=== PATIENT | female | born 2005 | race Caucasian/White ===

== ENCOUNTER 2025-03-23 10:59 | Inpatient (IN) | payer BC ==
[~2025-03-23 10:59] MED LIST: Iopamidol-370 76% 500 ML MDV (1 ML CHARGE) ONE
[2025-03-23 11:42] LABS: #Basophils 0.11 10x3/uL (0.0-0.2); #Eosinophils 0.12 10x3/uL (0.0-0.7); #Monocytes 1.17 10x3/uL (0.11-0.59); #Neutrophils 11.63 10x3/uL (1.40-6.50); %Basophils 0.7 % (0.0-1.0); %Eosinophils 0.8 % (0.0-10.0); %Lymphocytes 17.8 % (28.0-48.0); %Monocytes 7.3 % (0.0-4.0); %Neutrophils 73.0 % (31.0-61.0); Hematocrit 44.1 % (36.0-47.0); Hemoglobin 15.9 g/dL (12.0-16.0); Mean Corpuscular Hemoglobin 30.4 pg (25.0-35.0); Mean Corpuscular Volume 84.3 fL (78.0-98.0); Platelet Count 301 10x3/uL (130-400); Red Blood Cell (RBC) Count 5.23 mill/uL (4.00-5.20); White Blood Cell (WBC) Count 15.94 10x3/uL (4.8-10.8)
[2025-03-23 11:54] LABS: Pregnancy Test - Urine (BHCG) Negative (Negative); Pregu Control Background? CLEAR/WHITE (CLR/WHITE); Pregu Control Bar Appear? YES (CONTROL BAR)
[2025-03-23 11:55] LABS: Bacteria/HPF None Seen HPF (None Seen); CAUTI Indications for Culture Dysuria,urgency,freq; Glucose, Urine (Dipstick) Normal (Negative); Leukocyte Negative Leu/uL (Negative); Protein, Urine (Dipstick) 50 mg/dL (Neg-Trace); RBC/HPF 0-3 HPF (0-3); Specific Gravity, Urine 1.025 (1.002-1.036)
[2025-03-23 11:56] LABS: Urine Culture Reflex No No
[2025-03-23 12:02] LABS: BHCG - Serum Negative (NEGATIVE); Pregs Control Background? CLEAR/WHITE (CLR/WHITE); Pregs Control Bar Appear? YES (CONTROL BAR)
[2025-03-23 12:09] LABS: ALT (SGPT) 16 U/L (Less than 34); AST (SGOT) 27 U/L (11-34); Albumin 5.4 g/dL (3.1-4.5); Alkaline Phosphatase 46 U/L (40-100); Anion Gap 20 mmol/L (10-20); BUN (Urea Nitrogen) 33 mg/dL (7.0-18.7); Bilirubin, Total 2.0 mg/dL (0.3-1.2); Calc. Creatinine Clearance 0 mL/min (70-130); Calcium 9.9 mg/dL (7.8-10.44); Carbon Dioxide 24 mmol/L (22-29); Chloride 91 mmol/L (98-107); Globulin 4.0 g/dL (2.4-3.5); Glucose 118 mg/dL (70-105); Lipase 27 U/L (8-78); Potassium 3.1 mmol/L (3.5-5.1); Sodium 132 mmol/L (136-145)
[2025-03-23 12:46] LABS: Magnesium 2.6 mg/dL (1.7-2.2)
[2025-03-23] MEDS ORDERED: Ondansetron PF 4 MG/2 ML Vial ONE (13:07)
[2025-03-23] MEDS ORDERED: Famotidine/PF 20 mg/2ml Vial ONE (13:07)
[2025-03-23] MEDS ORDERED: Magnesium 2 GM/50 ML BAG (IN WATER) ONE (14:06)
[2025-03-23] MEDS ORDERED: Acetaminophen 325 MG TAB PO PRN (15:05)
[2025-03-23] MEDS ORDERED: Potassium Chloride 20 MEQ (100 mL) BAG ONE (15:14)
[2025-03-23 17:06] VITALS: BMI 22.6
[2025-03-23] MEDS: NS 0.9% w/ 20 MEQ KCL 1,000 ML/1,000 ML BAG IV SCH (18:13)
[2025-03-23] MEDS: diphenhydrAMINE 25 MG CAP PO PRN (21:08)
[2025-03-23] MEDS: Famotidine/PF 20 mg/2ml Vial SLOW IVP SCH (21:09)
[2025-03-24 05:21] LABS: ALT (SGPT) 11 U/L (Less than 34); AST (SGOT) 18 U/L (11-34); Albumin 4.2 g/dL (3.1-4.5); Alkaline Phosphatase 33 U/L (40-100); Anion Gap 10 mmol/L (10-20); BUN (Urea Nitrogen) 18 mg/dL (7.0-18.7); Bilirubin, Total 0.9 mg/dL (0.3-1.2); Calc. Creatinine Clearance 122 mL/min (70-130); Calcium 8.3 mg/dL (7.8-10.44); Carbon Dioxide 25 mmol/L (22-29); Chloride 105 mmol/L (98-107); Globulin 2.8 g/dL (2.4-3.5); Glucose 91 mg/dL (70-105); Potassium 3.6 mmol/L (3.5-5.1); Sodium 136 mmol/L (136-145)
[2025-03-24 07:27] LABS: #Basophils 0.11 10x3/uL (0.0-0.2); #Eosinophils 0.30 10x3/uL (0.0-0.7); #Monocytes 0.69 10x3/uL (0.11-0.59); #Neutrophils 4.24 10x3/uL (1.40-6.50); %Basophils 1.2 % (0.0-1.0); %Eosinophils 3.2 % (0.0-10.0); %Lymphocytes 43.5 % (28.0-48.0); %Monocytes 7.2 % (0.0-4.0); %Neutrophils 44.5 % (31.0-61.0); Hematocrit 33.1 % (36.0-47.0); Hemoglobin 11.9 g/dL (12.0-16.0); Mean Corpuscular Hemoglobin 31.1 pg (25.0-35.0); Mean Corpuscular Volume 86.4 fL (78.0-98.0); Platelet Count 199 10x3/uL (130-400); Red Blood Cell (RBC) Count 3.83 mill/uL (4.00-5.20); White Blood Cell (WBC) Count 9.52 10x3/uL (4.8-10.8)
[2025-03-24] MEDS: Enoxaparin 40 MG (0.4 mL) SYRINGE SC SCH (09:12)
[2025-03-24] MEDS ORDERED: clonazePAM 1 MG TAB PO PRN (10:50)
[2025-03-24] MEDS ORDERED: Ondansetron ORAL SOLN. 4 MG/5 ML UDCUP PO PRN (12:08)
[2025-03-24] MEDS: Metoclopramide HCl 10 MG (2 mL) VIAL IVP SCH (12:38)
[2025-03-24] MEDS: Scopolamine 1 mg/72 hour Patch TD SCH (12:39)
[2025-03-24] MEDS: Mag-Al 1200 mg/1200 mg/30 ML UDCUP PO SCH (17:51)
[2025-03-25 04:54] LABS: #Basophils 0.06 10x3/uL (0.0-0.2); #Eosinophils 0.29 10x3/uL (0.0-0.7); #Monocytes 0.55 10x3/uL (0.11-0.59); #Neutrophils 3.33 10x3/uL (1.40-6.50); %Basophils 0.7 % (0.0-1.0); %Eosinophils 3.6 % (0.0-10.0); %Lymphocytes 47.7 % (28.0-48.0); %Monocytes 6.7 % (0.0-4.0); %Neutrophils 40.9 % (31.0-61.0); Hematocrit 30.4 % (36.0-47.0); Hemoglobin 10.6 g/dL (12.0-16.0); Mean Corpuscular Hemoglobin 31.1 pg (25.0-35.0); Mean Corpuscular Volume 89.1 fL (78.0-98.0); Platelet Count 176 10x3/uL (130-400); Red Blood Cell (RBC) Count 3.41 mill/uL (4.00-5.20); White Blood Cell (WBC) Count 8.15 10x3/uL (4.8-10.8)
[2025-03-25 05:06] LABS: Anion Gap 11 mmol/L (10-20); BUN (Urea Nitrogen) 11 mg/dL (7.0-18.7); Calc. Creatinine Clearance 147 mL/min (70-130); Calcium 8.3 mg/dL (7.8-10.44); Carbon Dioxide 24 mmol/L (22-29); Chloride 106 mmol/L (98-107); Glucose 86 mg/dL (70-105); Potassium 3.7 mmol/L (3.5-5.1); Sodium 137 mmol/L (136-145)
[2025-03-25] MEDS: Pantoprazole 40 MG DR.TAB PO SCH (09:00)
[2025-03-25] MEDS: Citalopram 20 MG TAB PO SCH (09:00)
[2025-03-25 12:20] VITALS: BP 101/63; TEMP 97.9
== END 2025-03-25 14:38 | disposition home or self-care (01) | DRG 392 ==
LOC: ERS 10:59 → OBS 14:23 → OBSVTOIN 03-25 10:49
PROVIDERS: ADMIT Family Medicine; ATTEND Hospitalist
DX: R11.10 Vomiting, unspecified (principal); E87.1 Hypo-osmolality and hyponatremia; N17.9 Acute kidney failure, unspecified; F41.9 Anxiety disorder, unspecified; E87.6 Hypokalemia; E86.0 Dehydration; F12.10 Cannabis abuse, uncomplicated; K29.70 Gastritis, unspecified, without bleeding; Z79.899 Other long term (current) drug therapy
CPT/HCPCS: 36415; 71045; 74177; 80048; 80053; 81001; 81025; 83690; 83735; 84484; 84703; 85025; 93005; 96361; 96365; 96372; 96375; 96376; G0378; J1308; J1630; J1650; J2250; J2405; J2550; J2765; J3475; J3480; J7120; Q9967